=== PATIENT | female | born 1965 | race Caucasian/White ===

== ENCOUNTER 2022-06-05 10:34 | Outpatient (CLI) | payer BC, SELFPAY ==
[2022-06-05 09:55] LABS: Chloride* 103 mmol/L (96-114); Potassium* 4.8 mmol/L (3.6-5.1); Sodium* 138 mmol/L (135-149)
[2022-06-05 09:59] LABS: Blood Urea Nitrogen* 17 mg/dL (7-30); Calcium* 9.1 mg/dL (8.4-10.6); Carbon Dioxide* 29 mmol/L (20-32); Cholesterol* 194 mg/dL (90-199); Creatinine* 0.8 mg/dL (0.5-1.5); Estimated Glomerular Filt Rate 86 ml/min; Glucose* 109 mg/dL (60-115); HDL Cholesterol* 54 mg/dL (>=50); LDL Cholesterol Calculated 119 mg/dL (<100); Triglycerides* 103 mg/dL (40-149)
== END 2022-06-05 10:35 | disposition home or self-care (01) ==
PROVIDERS: PCP Internal Medicine; Visit Provider Internal Medicine
DX: Z00.00 Encounter for general adult medical examination without abnormal findings (principal); E03.9 Hypothyroidism, unspecified; R73.03 Prediabetes; E78.5 Hyperlipidemia, unspecified; Z86.79 Personal history of other diseases of the circulatory system; Z86.39 Personal history of other endocrine, nutritional and metabolic disease; F41.9 Anxiety disorder, unspecified
CPT/HCPCS: 80048; 80061; 84443

== ENCOUNTER 2022-06-08 13:52 | Outpatient (CLI) | payer BC, SELFPAY ==
--- NOTE | 2022-06-08 14:00 | CRLHL7_ITS ---
For Patients: As a result of the Century Cures Act, medical imaging exams and procedure reports are released immediately into your electronic medical record. You may view this report before your referring provider. If you have questions, please contact your health care provider. BILATERAL SCREENING MAMMOGRAM WITH COMPUTER-AIDED DETECTION AND TOMOSYNTHESIS TECHNIQUE: CC and MLO views were obtained. These mammographic images have been obtained using full-field digital technique. These mammographic images were interpreted with the benefit of computer-aided detection. Breast Tomosynthesis was used in this interpretation. COMPARISON FILM: 06/07/20 11/14/18. FINDINGS: There are scattered areas of fibroglandular density IMPRESSION: There is no radiographic evidence for malignancy. ASSESSMENT: BI-RADS Category 1: Negative RECOMMENDATION: Routine screening mammogram in 1 year. A lay language report of this examination will be provided to the patient. Trev Galeas M.D. Diagnostic Radiologist [email or web address] JONO/Dictated by: Trev Galeas MD @ 06/09/2022 8:54:00 AM (Electronically Signed)
== END 2022-06-08 13:53 | disposition home or self-care (01) ==
LOC: MAMMO 13:56
PROVIDERS: PCP Internal Medicine; Visit Provider Internal Medicine
DX: Z12.31 Encounter for screening mammogram for malignant neoplasm of breast (principal)
CPT/HCPCS: 77063; 77067

== ENCOUNTER 2023-08-27 07:28 | Outpatient (CLI) | payer BC, SELFPAY ==
--- OUTSIDE RECORDS SUMMARY | 2023-08-29 10:02 | XMS_ITS | Clinical Summary ---
Author Name Unknown Organization [facility] Address [address] [place] [address] Care Team Providers Care Mobility Scooter Repairer Name Role Phone Sharda Mosqueda MD Primary Care Provider Kelley ailable Source Comments You are receiving this document as you are listed as the primary care provider,follow-up provider, or the patient has been referred to you for consultation.This is in compliance with the Medicare andMedicaid EHR Incentive Program,which states Providers who transition their patient to another setting of careor provider of care or refers their patient to another provider of care shouldprovide summary care record for each transition of care or referral. [facility] Allergies Active Allergy Reactions Criticality Noted Date Comments Aspirin Rash 09/19/2007 PN: LW Reaction: ANAPHYLAXIS Ibuprofen 09/19/2007 PN: LW Reaction: ANAPHYLAXIS Nsaids Rash 02/09/2011 Other 03/20/2008 PN: LW Other1: -pt. states allergic to all NSAIDS, seafood - crab legs (hives, itching,wheezing(,bee stings (swelling) Medications Medication Sig Dispensed Refills Start Date End Date Status escitalopram oxalate (LEXAPRO) 20 MG tablet Take 20 mg by mouth daily. 0 Active Fluticasone Propionate (FLONASE NA) daily. 0 Active escitalopram oxalate (AKA LEXAPRO) 10 MG tablet LW Addl Instr:Indicated for: Depression 0 09/19/2007 Active levothyroxine (AKA SYNTHROID) 50 MCG tablet Take 50 mcg by mouth daily (every 24 hours). 0 04/17/2013 Active Active Problems No known active problems Social History Tobacco Use Types Packs/Day Years Used Date Smoking Tobacco: Every Day Cigarettes Smokeless Tobacco: Never Comments:Quit smoking: Alcohol Use Standard Drinks/Week Comments Yes 20 (1 standard drink = 0.6 oz pu re alcohol) Sex and Gender Information Value Date Recorded Sex Assigned at Not on file Gender Identity Not on file Sexual Orientation Not on file Last Filed Vital Signs Vital Sign Reading Time Taken Comments Blood Pressure 150/84 08/16/2017 1:53 PM CLINICAL TRIALS ASSISTANT Pulse 72 02/09/2011 8:06 AM CDT Temperature 36.7 ??C (98 ??F) 08/11/2017 9:16 AM CLINICAL TRIALS ASSISTANT Respiratory Rate 16 10/03/2007 9:05 AM CDT Oxygen Saturation - - Inhaled Oxygen Concentration - - Weight 81.2 kg (179 lb) 09/22/2020 1:33 PM CLINICAL TRIALS ASSISTANT Height 167.6 cm (5' 6) 09/22/2020 1:33 PM CLINICAL TRIALS ASSISTANT Body Mass Index 28.89 09/22/2020 1:33 PM CLINICAL TRIALS ASSISTANT Plan of Treatment Health Maintenance Due Date Last Done Comments Cervical Cancer Screening Due 1965 Colon Cancer Screening Plan Due 1965 Hep C Screening (Preventive Services) 1965 HepB (1) 1965 Mammogram 1965 HIV Screening (Preventive Services) 1981 Adult Preventive Visit 1983 Cholesterol 2010 Zoster/Shingles (1 of 2) 2015 Pneumococcal (2 - PCV) 04/06/2021 04/06/2020 COVID-19 Vaccine (3 - season) 2023 11/26/2020, 11/05/2020 Influenza (#1) 2023 04/28/2020, 04/23, 05/02/2017, Additional history exists DTaP/Tdap/Td (3 - Tdap) 01/04/2028 01/03/2018, 05/20 HepA Aged Out No longer eligi ble based on patient's age to complete this topic Hib Aged Out No longer eligi ble based on patient's age to complete this topic IPV (Polio) Aged Out No longer eligi ble based on patient's age to complete this topic MCV4 Aged Out No longer eligi ble based on patient's age to complete this topic Care Teams Mobility Scooter Repairer Relationship Specialty Start Date End Date Sharda Mosqueda MD PCP - General 04/17/13
--- OUTSIDE RECORDS SUMMARY | 2023-08-29 10:02 | XMS_ITS | Clinical Summary ---
Author Name Unknown Organization [facility] Address [place], [place] [address] Care Team Providers Care Qm Nurse Name Role Phone Pcp, No Primary Care Provider Unavailabl e Allergies Active Allergy Reactions Criticality Noted Date Comments Aspirin Rash 09/19/2007 PN: LW Reaction: ANAPHYLAXIS Nsaids (Non-Steroidal Anti-Inflammatory Drug) Rash 02/09/2011 Shellfish Containing Products Anaphylaxis High 05/21/2014 Venom-Honey Bee Anaphylaxis High 05/21/2014 Medications Medication Sig Dispensed Refills Start Date End Date Status EPINEPHrine (EPIPEN 2-YUNG) 0.3 mg/0.3 mL injection Inject 0.3 mg intramuscular. 0 05/13/2018 Active escitalopram oxalate (LEXAPRO) 20 mg tablet Take 20 mg by mouth once daily. 3 01/28/2019 Active levothyroxine (SYNTHROID) 50 mcg tablet Take 50 mcg by mouth once daily. 3 01/28/2019 Active Active Problems Problem Noted Date Diagnosed Date Adjustment disorder with mixed anxiety and depre ssed mood 04/17/2019 Overview: Relationship reactions Social History Tobacco Use Types Packs/Day Years Used Date Smoking Tobacco: Every Day Cigarettes 0.7 40.1 Started: 07/23/1983 Smokeless Tobacco: Never Tobacco Cessation:Ready to Q uit: No; Counseling Given: Yes Alcohol Use Standard Drinks/Week Comments Yes 0 (1 standard drink = 0.6 oz pur e alcohol) PHQ-2 Answer Date Recorded PHQ-2 Score 0 04/22/2019 Sex and Gender Information Value Date Recorded Sex Assigned at Not on file Gender Identity Not on file Sexual Orientation Not on file Obstetrics History Last Filed Vital Signs Vital Sign Reading Time Taken Comments Blood Pressure 166/80 02/24/2019 3:46 PM CDT Pulse 92 02/24/2019 3:29 PM CDT Temperature - - Respiratory Rate - - Oxygen Saturation 100% 02/24/2019 3:29 PM CDT Inhaled Oxygen Concentration - - Weight 84.5 kg (186 lb 3.2 oz) 02/24/2019 3:29 P M CDT Height 168.9 cm (5' 6.5) 02/24/2019 3:29 PM CDT Body Mass Index 29.6 02/24/2019 3:29 PM CDT Plan of Treatment Health Maintenance Due Date Last Done Comments COVID-19 vaccine series (#1) 1965 Tdap 1976 HIV for age 15-65 1980 Hepatitis C screening for age 18-79 1983 Tetanus booster 1985 Colonoscopy through age 75 2010 Lipids for age 45-75 2010 Mammogram for age 45-75 2010 Zoster (shingles) series for age 50+ (1 of 2) 2015 BMI (ht and wt on same day) for age 18+ 02/25/2020 02/24/2019 Depression screening for age 12+ 05/27/2020 05/27/2019, 04/29/2019, 04/22/2019, Additional history exists Influenza for age 50-64 03/23/2023 Pap test for age 21-65 06/07/2023 06/07/2020, 2019 Pneumococcal series for age 6-64 Aged Out No longer eligible based on patient's age to complete this topic Care Teams Qm Nurse Relationship Specialty Start Date End Date Pcp, No . PCP - General 02/24/19
== END 2023-08-27 07:29 | disposition home or self-care (01) ==
LOC: NFLDREF 08-29 09:59
PROVIDERS: PCP Internal Medicine; Referring Provider Internal Medicine; Visit Provider Internal Medicine
DX: E78.5 Hyperlipidemia, unspecified (principal)
CPT/HCPCS: 80061

== ENCOUNTER 2023-09-03 11:02 | Outpatient (CLI) | payer BC, SELFPAY ==
--- OUTSIDE RECORDS SUMMARY | 2023-09-03 11:05 | XMS_ITS | Clinical Summary ---
Author Name Unknown Organization [facility] Address [address] [place] [address] Care Team Providers Care Shelter Case Manager Name Role Phone Sharda Mosqueda MD Primary [...] for each transition of care or referral. [facility] Allergies Active Allergy Reactions Criticality Noted Date [...] Comments Blood Pressure 150/84 08/16/2017 1:53 PM PRODUCT DEVELOPMENT CONSULTANT Pulse 72 02/09/2011 8:06 AM CDT Temperature 36.7 ??C (98 ??F) 08/11/2017 9:16 AM PRODUCT DEVELOPMENT CONSULTANT Respiratory Rate 16 10/03/2007 9:05 AM CDT Oxygen Saturation - - Inhaled Oxygen Concentration - - Weight 81.2 kg (179 lb) 09/22/2020 1:33 PM PRODUCT DEVELOPMENT CONSULTANT Height 167.6 cm (5' 6) 09/22/2020 1:33 PM PRODUCT DEVELOPMENT CONSULTANT Body Mass Index 28.89 09/22/2020 1:33 PM PRODUCT DEVELOPMENT CONSULTANT Plan of Treatment Health Maintenance Due Date [...] age to complete this topic Care Teams Shelter Case Manager Relationship Specialty Start Date End Date Sharda Mosqueda MD PCP - General 04/17/13
--- OUTSIDE RECORDS SUMMARY | 2023-09-03 11:05 | XMS_ITS | Clinical Summary ---
Author Name Unknown Organization [facility] Address [place], [place] [address] Care Team Providers Care Briquette Operator Name Role Phone Pcp, No Primary Care [...] Used Date Smoking Tobacco: Every Day Cigarettes 0.8 40.1 Started: 07/23/1983 Smokeless Tobacco: Never Tobacco [...] age to complete this topic Care Teams Briquette Operator Relationship Specialty Start Date End Date Pcp, No . PCP - General 02/24/19
--- NOTE | 2023-09-03 11:30 | MM_ITS ---
BILATERAL SCREENING MAMMOGRAPHY. COMPARISON: 06/08/2022, 06/07/2020, 11/14/2018 FINDINGS: SCATTERED FIBROGLANDULAR DENSITIES ARE PRESENT. NO SUSPICIOUS FINDINGS. NO EVIDENCE OF MALIGNANCY. IMPRESSION: NEGATIVE. RECOMMENDATIONS: ANNUAL BILATERAL SCREENING MAMMOGRAPHY. BI-RADS CATEGORY 1. NEGATIVE.
== END 2023-09-03 11:03 | disposition home or self-care (01) ==
LOC: MAMMO 11:03
PROVIDERS: PCP Internal Medicine; Visit Provider Internal Medicine
DX: Z12.31 Encounter for screening mammogram for malignant neoplasm of breast (principal)
CPT/HCPCS: 77063; 77067; 84443

== ENCOUNTER 2023-09-03 13:35 | Outpatient (CLI) | payer BC, SELFPAY ==
--- OUTSIDE RECORDS SUMMARY | 2023-09-03 13:37 | XMS_ITS | Clinical Summary ---
Author Name Unknown Organization [facility] Address [place], [place] [address] Care Team Providers Care Library Clerk Talking Books Name Role Phone Pcp, No Primary Care [...] age to complete this topic Care Teams Library Clerk Talking Books Relationship Specialty Start Date End Date Pcp, No . PCP - General 02/24/19
--- OUTSIDE RECORDS SUMMARY | 2023-09-03 13:37 | XMS_ITS | Clinical Summary ---
Author Name Unknown Organization [facility] Address [address] [place] [address] Care Team Providers Care Studio Operation Engineer Name Role Phone Sharda Mosqueda MD Primary [...] for each transition of care or referral. [facility] Allergies Active Allergy Reactions Criticality Noted [...] Comments Blood Pressure 150/84 08/16/2017 1:53 PM SECURITIES VAULT SUPERVISOR Pulse 72 02/09/2011 8:06 AM CDT Temperature 36.7 ??C (98 ??F) 08/11/2017 9:16 AM SECURITIES VAULT SUPERVISOR Respiratory Rate 16 10/03/2007 9:05 AM CDT Oxygen Saturation - - Inhaled Oxygen Concentration - - Weight 81.2 kg (179 lb) 09/22/2020 1:33 PM SECURITIES VAULT SUPERVISOR Height 167.6 cm (5' 6) 09/22/2020 1:33 PM SECURITIES VAULT SUPERVISOR Body Mass Index 28.89 09/22/2020 1:33 PM SECURITIES VAULT SUPERVISOR Plan of Treatment Health Maintenance Due Date [...] age to complete this topic Care Teams Studio Operation Engineer Relationship Specialty Start Date End Date Sharda Mosqueda MD PCP - General 04/17/13
== END 2023-09-03 13:36 | disposition home or self-care (01) ==
PROVIDERS: PCP Internal Medicine; Visit Provider Internal Medicine
DX: E03.9 Hypothyroidism, unspecified (principal)
CPT/HCPCS: 84443

== ENCOUNTER 2024-10-06 07:37 | Outpatient (CLI) | payer BC, SELFPAY | END 2024-10-06 07:38 | disposition home or self-care (01) | LOC: NFLDREF 10-07 03:21 | PROVIDERS: PCP Internal Medicine; Referring Provider Internal Medicine; Visit Provider Internal Medicine | DX: R73.03 Prediabetes (principal); E78.5 Hyperlipidemia, unspecified; E03.9 Hypothyroidism, unspecified | CPT/HCPCS: 80061; 84439; 84443 ==

== ENCOUNTER 2024-10-13 11:13 | Outpatient (CLI) | payer BC, SELFPAY ==
--- OUTSIDE RECORDS SUMMARY | 2024-07-24 15:12 | XMS_ITS | Clinical Summary ---
Author Organization [facility] Address [place], [place] [address] Care Team Providers Care White Washer Piler Name Role Phone Pcp, No Primary Care Provider Unavailabl e Allergies Active Allergy Reactions Criticality Noted Date Comments Aspirin Rash 09/19/2007 PN: LW Reaction: ANAPHYLAXIS Nsaids (Non-Steroidal Anti-Inflammatory Drug) Rash 02/09/2011 Shellfish Containing Products Anaphylaxis High 05/21/2014 Venom-Honey Bee Anaphylaxis High 05/21/2014 Medications EPINEPHrine (EPIPEN 2-YUNG) 0.3 mg/0.3 mL injection Inject 0.3 mg intramuscul ar. 05/13/2018 Active escitalopram oxalate (LEXAPRO) 20 mg tablet Take 20 mg by mouth once daily. 3 01/28/2019 Active levothyroxine (SYNTHROID) 50 mcg tablet Take 50 mcg by mouth once daily. 3 01/28/2019 Active Active Problems Problem Noted Date Diagnosed Date Adjustment disorder with mixed anxiety and depre ssed mood 04/17/2019 Overview (04/17/2019): Relationship reactions Social History Tobacco Use Types Packs/Day Years Used Date Smoking Tobacco: Every Day Cigarettes 0.8 41 Started: 07/23/1983 Smokeless Tobacco: Never Tobacco Cessation:Ready to Q uit: No; Counseling Given: Yes Alcohol Use Standard Drinks/Week Comments Yes 0 (1 standard drink = 0.6 oz pur e alcohol) PHQ-2 Answer Date Recorded PHQ-2 Score 0 04/22/2019 Comments Unknown Sex and Gender Information Value Date Recorded Sex Assigned at Not on file Legal Sex Female 5:42 AM DRUG SAFETY SPECIALIST Gender Identity Not on file Sexual Orientation [...] Health Maintenance Due Date Last Done Comments Tdap 1976 HIV for age 15-65 1980 Hepatitis C screening for ag e 18-79 1983 Tetanus booster 1985 Colonoscopy through age 75 2010 Lipids for age 45-75 2010 Mammogram for age 45-75 2010 Pneumococcal series for age 50+ (1 of 1 - PCV) 2015 Zoster (shingles) series for age 50+ (1 of 2) 2015 BMI (ht and wt on same day) for age 18+ 02/25/2020 02/24/2019 Depression screening for age 12+ 05/27/2020 05/27/2019, 04/29/2019, 04/22/2019, Additional history exists Pap test for age 21-65 06/07/2023 06/07/2020, 2019 COVID-19 vaccine series (2023-25 season) 2024 Influenza for age 50-64 03/23/2024 Procedures Procedure Name Priority Date/Time Associated Diagnosis Comments FORMULATION CHEMIST THIN PREP PAP SCREEN IMAGED Routine 06/07/2020 1:40 PM DRUG SAFETY SPECIALIST from Last 3 Months or Most Recently Relevant to Health Maintenance Results * FORMULATION CHEMIST THIN PREP PAP SCREEN IMAGED (06/07/2020 1:40 PM DRUG SAFETY SPECIALIST) Case Report Gynecologic Cytology Report Case: [id number] Authorizing Provider: Wendy Valdez MD Collected: 06/07/2020 1340 Ordering Location: [facility] Received: 06/09/2020 0902 First Screen: Riky Aldrich Specimen: FORMULATION CHEMIST ThinPrep Vial Screening, Cervical/Vaginal 06/18/2020 9:44 AM DRUG SAFETY SPECIALIST [facility] INTERPRETATION/ RESULT NEGATIVE FOR INTRAEPITHELIAL LESION OR MALIGNANCY (NIL) (none) 06/18/2020 9:44 AM DRUG SAFETY SPECIALIST [facility] IMEN ADEQUACY Satisfactory for evaluation Endocervical component present 06/18/2020 9:44 AM DRUG SAFETY SPECIALIST [facility] HPV REQUEST HPV and PAP 06/18/2020 9:44 AM DRUG SAFETY SPECIALIST [facility] Date of LMP 06/18/2020 9:44 AM DRUG SAFETY SPECIALIST [facility] Comment:Unknown Last Pap Date 05/22/2016 06/18/2020 9:44 AM DRUG SAFETY SPECIALIST [facility] Last Pap Result NIL 0 9:44 AM [facility] Comment:-HPV Additional Information 06/18/2020 9:44 AM [facility] Comment: Interpreted at [facility] Retrophin [facility] - [address], [place] [address] Automated Review Successful 06/18/2020 9:44 AM [facility] Comment:Specimen processed s uccessfully by automated automatic vulcanizing lead operator device, ThinPrep Imaging System, [employer] ANCILLARY TESTING FORMULATION CHEMIST HPV Ordered, Please see separate report 06/18/2020 9:44 AM [facility] Note The pap test is a screening technique, not a diagnostic procedure. It is used primarily to screen for squamous cancers and precursor lesions. Published studies have shown that it is subject to both false negative and false positive results. The pap test should not be used as the sole means to diagnose or exclude pre-malignant and malignant lesions. 06/18/2020 9:44 AM [facility] Other (Cervical/Vagina l) 06/07/2020 1:40 PM DRUG SAFETY SPECIALIST 06/09/2020 9:02 AM DRUG SAFETY SPECIALIST us Wendy Valdez MD PATHOLOGY/CYTOLOGY Final Result [facility] [address] [place] [address], from Last 3 Months or Most Recently Relevant to Health Maintenance Insurance [facility] Care Teams White Washer Piler Relationship Specialty Start Date End Date Pcp, No . PCP - General 02/24/19
--- OUTSIDE RECORDS SUMMARY | 2024-07-24 15:12 | XMS_ITS | Clinical Summary ---
Author Organization [facility] Address [address] [address] Care Team Providers Care Ore Storage Drier Name Role Phone Sharda Mosqueda MD Primary [...] for each transition of care or referral. [facility] Allergies Active Allergy Reactions Criticality Noted Date [...] tablet Take 20 mg by mouth daily. Active Fluticasone Propionate (FLONASE NA) daily. Active escitalopram oxalate (AKA LEXAPRO) 10 MG tablet LW Addl Instr:Indicated for: Depression 09/19/2007 Active levothyroxine (AKA SYNTHROID) 50 MCG tablet Take 50 mcg by mouth daily (every 24 hours). 04/17/2013 Active Active Problems No known active [...] Comments Blood Pressure 150/84 08/16/2017 1:53 PM TOOL ROOM MACHINIST Pulse 72 02/09/2011 8:06 AM CDT Temperature 36.7 C (98 F) 08/11/2017 9:16 AM TOOL ROOM MACHINIST Respiratory Rate 16 10/03/2007 9:05 AM CDT Oxygen Saturation - - Inhaled Oxygen Concentration - - Weight 81.2 kg (179 lb) 09/22/2020 1:33 PM TOOL ROOM MACHINIST Height 167.6 cm (5' 6) 09/22/2020 1:33 PM TOOL ROOM MACHINIST Body Mass Index 28.89 09/22/2020 1:33 PM TOOL ROOM MACHINIST Plan of Treatment Health Maintenance Due Date Last Done Comments Cervical Cancer Screening Due 1965 Colon Cancer Screening Plan Due 1965 Hep C Screening (Preventive Services) 1965 Mammogram 1965 HIV Screening (Preventive Services) 1981 Adult Preventive Visit 1983 HepB (1) 1984 Cholesterol 2010 Zoster/Shingles (1 of 2) 2015 Pneumococcal (2 - PCV) 04/06/2021 04/06/2020 COVID-19 Vaccine (3 - season) 2024 11/26/2020, 11/05/2020 Influenza (#1) 2024 04/28/2020, 04/23, 05/02/2017, Additional history exists DTaP/Tdap/Td [...] age to complete this topic Care Teams Ore Storage Drier Relationship Specialty Start Date End Date Sharda Mosqueda MD PCP - General 04/17/13
--- NOTE | 2024-10-13 11:30 | CRLHL7_ITS ---
For Patients: As a result of the Century Cures Act, medical imaging exams and procedure reports are released immediately into your electronic medical record. You may view this report before your referring provider. If you have questions, please contact your health care provider. BILATERAL SCREENING MAMMOGRAM WITH COMPUTER-AIDED DETECTION AND TOMOSYNTHESIS TECHNIQUE: CC and MLO views were obtained. These mammographic images have been obtained using full-field digital technique. These mammographic images were interpreted with the benefit of computer-aided detection. Breast tomosynthesis was used in this interpretation. COMPARISON FILM: 09/03/23, 06/08/22, 06/07/20. FINDINGS: There are scattered areas of fibroglandular density. IMPRESSION: There is no radiographic evidence for malignancy. ASSESSMENT: BI-RADS Category 1: Negative RECOMMENDATION: Routine screening mammogram in 1 year. A lay language report of this examination will be provided to the patient. TREV GOODE M.D. Diagnostic Radiologist [email or web address] Transcribed: 10/20/2024, 5:[address]/Dictated by: Trev Goode MD @ 10/20/2024 10:40:00 AM (Electronically Signed)
== END 2024-10-13 11:14 | disposition home or self-care (01) ==
LOC: MAMMO 11:14
PROVIDERS: PCP Internal Medicine; Visit Provider Internal Medicine
DX: Z12.31 Encounter for screening mammogram for malignant neoplasm of breast (principal); Z12.4 Encounter for screening for malignant neoplasm of cervix
CPT/HCPCS: 77063; 77067; 87624; 88142

== ENCOUNTER 2025-04-07 09:41 | Outpatient (CLI) | payer BC, SELFPAY | END 2025-04-07 09:42 | disposition home or self-care (01) | PROVIDERS: PCP Internal Medicine; Visit Provider Family Medicine | DX: Z00.00 Encounter for general adult medical examination without abnormal findings (principal) | CPT/HCPCS: 80053; 84550; 85379 ==

== ENCOUNTER 2025-04-09 10:37 | Outpatient (CLI) | payer BC, SELFPAY ==
--- NOTE | 2025-04-09 10:45 | CRLHL7_ITS ---
For Patients: As a result of the Century Cures Act, medical imaging exams and procedure reports are released immediately into your electronic medical record. You may view this report before your referring provider. If you have questions, please contact your health care provider. INDICATION: elevated TSH COMPARISON: none TECHNIQUE: Rosales scale and color Doppler images were acquired of the thyroid gland. FINDINGS: Isthmus measures 2 millimeters. Hypoechoic nodule right thyroid lobe measures 5 x 3 x 4 millimeters, TR 4. Calcification right thyroid lobe measures 3 x 1 x 2 millimeters. The right lobe measures 4.3 x 1.0 x 1.2 cm and the left lobe measures 3.8 x 0.9 x 0.9 cm in size. Isthmus measures 2 millimeters. The color Doppler images demonstrate normal vascularity. There is no evidence of cervical lymphadenopathy or parathyroid mass. IMPRESSION: No suspicious thyroid nodule. Normal vascularity. Dictated by Trev Galeas MD @ 04/09/2025 11:11:19 AM (Electronically Signed)
== END 2025-04-09 10:38 | disposition home or self-care (01) ==
LOC: US 10:38
PROVIDERS: PCP Internal Medicine; Visit Provider Family Medicine
DX: R79.89 Other specified abnormal findings of blood chemistry (principal)
CPT/HCPCS: 76536

== ENCOUNTER 2025-04-20 08:42 | Outpatient (CLI) | payer BC, SELFPAY | END 2025-04-20 08:43 | disposition home or self-care (01) | LOC: NFLDREF 04-21 07:44 | PROVIDERS: PCP Internal Medicine; Referring Provider Internal Medicine; Visit Provider Family Medicine | DX: E03.9 Hypothyroidism, unspecified (principal) | CPT/HCPCS: 84443 ==

== ENCOUNTER 2025-06-01 10:42 | Outpatient (CLI) | payer BC, SELFPAY | END 2025-06-01 10:43 | disposition home or self-care (01) | LOC: NFLDREF 10:43 | PROVIDERS: PCP Internal Medicine; Visit Provider Internal Medicine | DX: I10 Essential (primary) hypertension (principal) | CPT/HCPCS: 80048 ==